=== PATIENT | female | born 1985 | race Caucasian/White ===

== ENCOUNTER → 2017-03-17 | Outpatient (CLI) | payer BC ==
--- NOTE | 2017-03-18 07:56 | MAMMOGRAPHY REPORT ---
UNILATERAL RIGHT DIGITAL DIAGNOSTIC MAMMOGRAM TOMOSYNTHESIS WITH CAD AND TARGETED RIGHT ULTRASOUND: 03/17/2017 CLINICAL HISTORY: 31-year-old woman who reports a new palpable mobile mass in the right breast for 1 -2 weeks. No skin changes or nipple discharge. Family history of breast cancer = grandmother. TECHNIQUE: Right breast tomosynthesis in addition to standard 2D mammography was performed. Current study was also evaluated with a Computer Aided Detection (CAD) system. COMPARISON: No prior exams were available for comparison. BREAST COMPOSITION: The tissue of the right breast is extremely dense, which lowers the sensitivity of mammography. FINDINGS: A triangular skin palpable marker overlies the lower outer anterior right breast. There is a possible 2 cm mass in the area of concern in the inferior right breast on the MLO view but bord ers of the mass are not clearly identified near the skin marker on the CC view. However, there is a possible partially circumscribed and obscured mass in the lateral posterior right breast on the CC view (tomosynthesis slice 44), measuring 12 mm. Further evaluation with ultrasound was performed in the lateral right breast, with particular attention to the area of concern in the 8:00 axis. There are diffuse benign appearing punctate microcalcifications throughout the right breast. Real-time high-resolution ultrasound was performed in the area of palpable lump pointed out by the p atient (8:00 right breast, 2 cm from the nipple). Additional scanning was performed throughout the entire lateral right breast to assess for another possible partially circumscribed and obscured mamm ographic mass. In the 8:00 right breast, there is a lobulated circumscribed anechoic benign simple cyst measuring 18.5 x 10.6 x 19.5 mm. This correlates has palpated and is benign. Another anechoic lobulated simple cyst is seen in the 10:00 right breast, 5 cm from the nipple, measuring 12.3 x 6.1 x 12.5 mm. The size, shape and location correlate well with the other possible mass seen in the la teral right breast mammographically. Several other scattered anechoic benign cysts are seen in part icular within the 10:00 and 12:00 axes of the right breast on ultrasound. These findings are compat ible with fibrocystic changes. IMPRESSION: ACR BI-RADS CATEGORY 2: BENIGN, TARGETED ULTRASOUND ACR BI-RADS CATEGORY 2: BENIGN 1. The palpable lump in the 8:00 right breast correlates with a benign anechoic simple cyst on ultr asound. No further workup is needed at this time. 2. Another partially circumscribed mammographic mass in the lateral right breast is thought to lex elate with additional anechoic simple cyst in the 10:00 right breast on ultrasound. Note is made of other simple cysts scattered throughout the 10:00 and 12:00 axes on ultrasound. These findings are compatible with benign fibrocystic changes. 3. There is no mammographic or targeted sonographic evidence of malignancy in the right breast. Re commend routine screening mammography at age 40, unless there is a new palpable concern in the inter im. Approximately 10% of breast cancers are not detected with mammography. A negative mammographic repor t should not delay biopsy if a clinically suggestive mass is present. Alyce Barrett M.D. ay/:03/17/2017 13:08:43 Roading Engineer: Lita Perez, [facility] letter sent: Normal 1/2 BI-RADS Code: ACR BI-RADS Category 2: Benign Ultrasound BI-RADS: ACR BI-RADS Category 2: Benign
== END | disposition home or self-care (01) ==
LOC: C.MAMM 12:34
PROVIDERS: ATTEND Nurse Practitioner
DX: N63 Unspecified lump in breast (principal)